=== PATIENT | female | born 1995 | race American Indian/Alaskan Native ===

== ENCOUNTER 2016-11-24 17:12 | Emergency (ER) | payer SELFPAY ==
[2016-11-24 17:39] VITALS: BP 127/78
[2016-11-24 18:49] LABS: Basophils % (Auto) 0.2 % (0.0-1.8); Eosinophils % (Auto) 0.9 % (0.0-4.3); Hematocrit 35.4 % (30.3-42.9); Hemoglobin 11.5 gm/dl (10.1-14.3); Mean Corpuscular HGB Conc 32 % (30-34); Mean Corpuscular Hemoglobin 27 pg (28-32); Mean Corpuscular Volume 83 fl (79-97); Platelet Count 320 K/mm3 (140-440); Red Blood Count 4.29 M/mm3 (3.65-5.03); Red Cell Distribution Width 17.3 % (13.2-15.2); White Blood Count 4.7 K/mm3 (4.5-11.0)
--- NOTE | 2016-11-27 11:32 | ED Elopement Review ---
ED Pt Elopement review - Results review Lab results: Laboratory Tests 11/24/16 11/24/16 11/24/16 17:56 17:56 17:56 WBC 4.7 RBC 4.29 Hgb 11.5 Hct 35.4 MCV 83 MCH 27 L MCHC 32 RDW 17.3 H Plt Count 320 Lymph % (Auto) 25.2 Parker % (Auto) 11.1 H Eos % (Auto) 0.9 Baso % (Auto) 0.2 Lymph # 1.2 Parker # 0.5 Eos # 0.0 Baso # 0.0 Seg Neutrophils % 62.6 Seg Neutrophils # 2.9 HCG, Quant 45358 H Blood Type O POSITIVE Antibody Screen TNR LIEN Antibody Screen Negative - Call Back decision Pt Call Back Decision: No action required
== END 2016-11-24 19:55 | disposition left against medical advice (07) ==
LOC: ED 17:12
DX: N93.9 Abnormal uterine and vaginal bleeding, unspecified (principal); Z53.21 Procedure and treatment not carried out due to patient leaving prior to being seen by health care provider
CPT/HCPCS: 36415; 84702; 85025; 86850; 86900; 86901